=== PATIENT | male | born 1995 | race African-American/Black ===

== ENCOUNTER 2018-01-26 11:09 | Emergency (ER) | payer OTHER ==
[2018-01-26 11:20] VITALS: BP 127/76
[2018-01-26] MEDS ORDERED: cefTRIAXone IV Push 1 GM VIAL. IVP ONE (11:45)
[2018-01-26] MEDS ORDERED: cefTRIAXone IM 1 GM VIAL IM ONE (12:00)
[2018-01-26] MEDS ORDERED: AMOX1TAB61 PO (12:13)
[2018-01-26] MEDS ORDERED: IBUP800T19 PO (12:13)
[2018-01-26] MEDS ORDERED: HYDR115S2 PO (12:13)
--- NOTE | 2018-01-26 12:13 | PHYS DOC ---
Past History Past Medical History: No Pertinent History Past Surgical History: No Surgical History Alcohol Use: None Drug Use: None Adult General Chief Complaint Chief Complaint: SORE THROAT [facility] 22-year-old female patient complaining of sore throat and subjective fever and chills with nasal congestion and hoarseness and myalgia. Patient states he moved from [place] to this area to attend school and plays football daily. Review of Systems Review of Systems Constitutional: Reports subjective fever Eyes: Denies change in visual acuity, redness, or eye pain [] HENT: Reports nasal congestion or sore throat Respiratory: Reports nonproductive cough without shortness of breath [] Cardiovascular: No additional information not addressed in HPI [] GI: Denies abdominal pain, nausea, vomiting, bloody stools or diarrhea [] : Denies dysuria or hematuria [] Musculoskeletal: Denies back pain or joint pain [] Integument: Denies rash or skin lesions [] Neurologic: Denies headache, focal weakness or sensory changes [] Endocrine: Denies polyuria or polydipsia [] All other systems were reviewed and found to be within normal limits, except as documented in this note. Allergies Allergies Allergies Coded Allergies Type Severity Reaction Last Updated Verified No Known Drug Allergies 01/26/18 No Physical Exam Physical Exam Constitutional: Well developed, well nourished, mild distress, non-toxic appearance, hoarseness. [] HENT: Normocephalic, atraumatic, bilateral external ears normal, oropharynx moist, right tonsillar edema and erythema without sign of abscess with exudates , nose normal. [] Eyes: PERRLA, EOMI, conjunctiva normal, no discharge. [] Neck: Normal range of motion, no tenderness, supple, no stridor. [] Cardiovascular:Heart rate regular rhythm, no murmur [] Lungs & Thorax: Bilateral breath sounds clear to auscultation [] Abdomen: Bowel sounds normal, soft, no tenderness, no masses, no pulsatile masses. [] Skin: Warm, dry, no erythema, no rash. [] Back: No tenderness, no CVA tenderness. [] Extremities: No tenderness, no cyanosis, no clubbing, ROM intact, no edema. [] Neurologic: Alert and oriented X 3, normal motor function, normal sensory function, no focal deficits noted. [] Psychologic: Affect normal, judgement normal, mood normal. [] Current Patient Data Vital Signs Vital Signs Date Time Temp Pulse Resp B/P (MAP) Pulse Ox O2 Delivery O2 Flow Rate FiO2 01/26/18 11:20 Room Air 01/26/18 11:20 98.8 81 20 96 EKG EKG [] Radiology/Procedures Radiology/Procedures [] Course & Med Decision Making Course & Med Decision Making Pertinent Labs reviewed. (See chart for details) Evaluation of patient in ER showed 22-year-old male patient with complaining of sore throat and nasal congestion and epistaxis symptom for the last 3 days. Patient had enlarged right tonsil with exudate with negative strep test. Patient treated with Rocephin and ibuprofen in ER and prescription for Augmentin and Tussionex was given. [] Dragon Disclaimer Dragon Disclaimer This electronic medical record was generated, in whole or in part, using a voice recognition dictation system. Departure Departure: Impression: Primary Impression: Acute pharyngitis Disposition: HOME, SELF-CARE (at 1207) Condition: IMPROVED Referrals: PCP,NO (PCP) Patient Instructions: Viral and Bacterial Pharyngitis Additional Instructions: Drink plenty of liquids Follow-up with your primary care physician in 3-5 days Return to ER if not getting better Scripts Ibuprofen (IBUPROFEN) 800 Mg Tablet 1 TAB PO TID, #30 TAB Prov: TANA SCHROEDER MD 01/26/18 Hydrocodone/Chlorphen P-Stirex (Tussionex Pennkinetic Susp) 115 Ml Destiney.er.12h 5 ML PO BID, #60 MISC Prov: TANA SCHROEDER MD 01/26/18 Amoxicillin/Potassium Clav (AUGMENTIN 875-125 TABLET) 1 Each Tablet 1 TAB PO BID, #14 TAB Prov: TANA SCHROEDER MD 01/26/18 TANA SCHROEDER MD Jan 26, 2018 12:13
[2018-01-26] MEDS ORDERED: IBUPROFEN 400 MG TABLET. PO ONE (12:15)
[2018-01-26] MEDS ORDERED: IBUPROFEN 800 MG TABLET. PO ONE (12:15)
== END 2018-01-26 12:18 | disposition home or self-care (01) ==
LOC: ER 11:09
DX: J02.9 Acute pharyngitis, unspecified (principal); J35.1 Hypertrophy of tonsils
CPT/HCPCS: 87070; 87880; 96372; 99283; J0696

== ENCOUNTER 2018-08-04 12:21 | Emergency (ER) | payer OTHER ==
[~2018-08-04] VITALS: Ht 188 cm; Wt 115.7 kg
[~2018-08-04 12:21] MED LIST: AMOX1TAB61 PO; HYDR115S2 PO; IBUP800T19 PO
[2018-08-04] MEDS ORDERED: IV NORMAL SALINE 1,000ML 1,000 ML IV ONE (12:45)
[2018-08-04] MEDS ORDERED: ONDANSETRON PF 4 MG/2 ML VIAL. IV ONE (13:00)
--- NOTE | 2018-08-04 13:02 | RAD ---
Chest, 2 views, 08/04/2018: HISTORY: Shortness of breath The heart size and pulmonary vascularity are normal. No pulmonary infiltrate is seen. There is no evidence of pleural fluid. IMPRESSION: No significant cardiopulmonary abnormality is detected. Electronically signed by: Loki Wade MD (08/04/2018 12:58 PM) [facility]
[2018-08-04 13:06] LABS: BASO % 0 % (0-3); EOS % 0 % (0-3); HEMATOCRIT 49.4 % (39.0-53.0); HEMOGLOBIN 16.4 g/dL (13.0-17.5); LYMPH # 1.5 x10^3/uL (1.0-4.8); LYMPH % 11 % (24-48); MEAN CORPUSCULAR HEMOGLOBIN 27 pg (25-35); MEAN CORPUSCULAR HGB CONC 33 g/dL (31-37); MEAN CORPUSCULAR VOLUME 82 fL (79-100); MONO % 7 % (0-9); NEUT # 11.7 x10^3uL (1.8-7.7); NEUT % 82 % (31-73); PLATELET COUNT 197 x10^3/uL (140-400); WHITE BLOOD COUNT 14.2 x10^3/uL (4.0-11.0)
--- NOTE | 2018-08-04 13:06 | PHYS DOC ---
Past History Past Medical History: No Pertinent History Past Surgical History: No Surgical History Alcohol Use: None Drug Use: None Adult General Chief Complaint Chief Complaint: DIZZY/LIGHT HEADED HPI HPI 22-year-old male presents with congestion, sore throat, dizziness, vomiting. The patient woke up this morning was feeling nauseated and slightly dizzy which she describes as a lightheaded feeling. He then really again feel he continued to vomit. He had one episode of emesis that was blood-tinged. He also noticed that he was having a sore throat prior to vomiting. Patient is unsure if he has had a fever at home. He was feeling well yesterday. He is not eating any unusual or different foods in the last 24 hours. Review of Systems Review of Systems Constitutional: Denies fever or chills [] Eyes: Denies change in visual acuity, redness, or eye pain [] HENT: nasal congestion and sore throat [] Respiratory: Cough without shortness of breath [] Cardiovascular: No additional information not addressed in HPI [] GI: Nausea with blood-tinged emesis[] : Denies dysuria or hematuria [] Musculoskeletal: Denies back pain or joint pain [] Integument: Denies rash or skin lesions [] Neurologic: Denies headache, focal weakness or sensory changes [] Endocrine: Denies polyuria or polydipsia [] All other systems were reviewed and found to be within normal limits, except as documented in this note. Current Medications Current Medications Current Medications Medications (Trade) Dose Ordered Sig/[facility] Start Time Stop Time Status Last Admin Dose Admin Ondansetron HCl (Zofran) 4 mg 1X ONCE 08/04/18 13:00 08/04/18 13:01 DC 08/04/18 12:58 4 MG Sodium Chloride 1,000 ml @ 1,000 mls/hr 1X ONCE 08/04/18 12:45 08/04/18 13:44 08/04/18 12:58 1,000 MLS/HR Allergies Allergies Allergies Coded Allergies Type Severity Reaction Last Updated Verified No Known Drug Allergies 01/26/18 No Physical Exam Physical Exam Constitutional: Well developed, well nourished, no acute distress, non-toxic appearance. [] HENT: Normocephalic, atraumatic, bilateral external ears normal, oropharynx moist, no oral exudates, nose normal. [] Eyes: PERRLA, EOMI, conjunctiva normal, no discharge. [] Neck: Normal range of motion, no tenderness, supple, no stridor. [] Cardiovascular:Heart rate regular rhythm, no murmur [] Lungs & Thorax: Bilateral breath sounds clear to auscultation [] Abdomen: Bowel sounds normal, soft, no tenderness, no masses, no pulsatile masses. [] Skin: Warm, dry, no erythema, no rash. [] Back: No tenderness, no CVA tenderness. [] Extremities: No tenderness, no cyanosis, no clubbing, ROM intact, no edema. [] Neurologic: Alert and oriented X 3, normal motor function, normal sensory function, no focal deficits noted. [] Psychologic: Affect normal, judgement normal, mood normal. [] Current Patient Data Vital Signs Vital Signs Date Time Temp Pulse Resp B/P (MAP) Pulse Ox O2 Delivery O2 Flow Rate FiO2 08/04/18 12:25 100.5 95 20 96 Room Air EKG EKG [] Radiology/Procedures Radiology/Procedures [] Impressions: Chest, 2 views, 08/04/2018: HISTORY: Shortness of breath The heart size and pulmonary vascularity are normal. No pulmonary infiltrate is seen. There is no evidence of pleural fluid. IMPRESSION: No significant cardiopulmonary abnormality is detected. Electronically signed by: Loki Wade MD (08/04/2018 12:58 PM) [facility] DICTATED AND SIGNED BY: LOKI WADE MD DATE: 08/04/18 1257 CC: MAX KEY DO; NON,STAFF Course & Med Decision Making Course & Med Decision Making Pertinent Labs and Imaging studies reviewed. (See chart for details) Patient's rapid strep is positive. I will treat him with Bicillin in the ED. The patient's chest x-ray is unremarkable. I have given him 4 mg Zofran IV and 1 L normal saline. His labs are remarkable for an elevated white count. His urine is negative for infection. He has positive for marijuana. The patient had no further vomiting in the ED. He is stable for discharge at this time. [] Dragon Disclaimer Dragon Disclaimer This electronic medical record was generated, in whole or in part, using a voice recognition dictation system. Departure Departure: Impression: Primary Impression: Strep pharyngitis Additional Impression: Vomiting Disposition: 01 HOME, SELF-CARE Condition: STABLE Referrals: NON,STAFF (PCP) Patient Instructions: Strep Throat Tests-Brief Scripts Ondansetron (ONDANSETRON ODT) 4 Mg Tab.rapdis 1 TAB PO PRN Q6-8HRS PRN for VOMITING, #16 TAB Prov: MAX KEY DO 08/04/18 Problem Qualifiers Additional Impression: Vomiting Vomiting type: unspecified Vomiting Intractability: non-intractable Nausea presence: with nausea Qualified Codes: R11.2 - Nausea with vomiting, unspecified MAX KEY DO Aug 04, 2018 13:06
[2018-08-04 13:09] LABS: BARBITURATES NEG (NEG); BENZODIAZEPINES NEG (NEG); CANNABINOIDS POS (NEG); COCAINE NEG (NEG); METHADONE NEG (NEG); OPIATES NEG (NEG); PHENCYCLIDINE NEG (NEG)
[2018-08-04 13:10] LABS: AMPHETAMINE/METHAMPHETAMINE NEG (NEG)
[2018-08-04 13:13] LABS: BACTERIA,URINE 0 /HPF (0-FEW); BILIRUBIN,URINE NEG (NEG); CLARITY,URINE CLEAR; COLOR,URINE AMBER; GLUCOSE,URINE NEG (NEG); NITRITE,URINE NEG (NEG); RBC,URINE 0 /HPF (0-2); SQUAMOUS EPITHELIAL CELL,UR OCC /LPF; UROBILINOGEN,URINE 0.2 mg/dL (0.2 mg/dL); WBC,URINE 0 /HPF (0-4)
[2018-08-04] MEDS ORDERED: PENICILLIN G BENZATHINE LA 1,200,000 UNIT/2 ML DISP.SYRIN. IM ONE (13:15)
[2018-08-04 13:18] LABS: INFLUENZA A PATIENT NEGATIVE (NEGATIVE); INFLUENZA B PATIENT NEGATIVE (NEGATIVE)
[2018-08-04 13:20] LABS: ALBUMIN 4.2 g/dL (3.4-5.0); CALCIUM 9.4 mg/dL (8.5-10.1); GFR 115.3; POTASSIUM 4.3 mmol/L (3.5-5.1); TOTAL PROTEIN 8.6 g/dL (6.4-8.2)
[2018-08-04] MEDS ORDERED: ONDA4TAB12 PO (13:26)
[2018-08-04 13:29] VITALS: BP 115/62
== END 2018-08-04 14:26 | disposition home or self-care (01) ==
LOC: ER 12:21
DX: J02.0 Streptococcal pharyngitis (principal); R11.2 Nausea with vomiting, unspecified; B95.5 Unspecified streptococcus as the cause of diseases classified elsewhere
CPT/HCPCS: 36415; 71046; 80053; 80307; 81001; 85025; 87804; 87880; 96372; 96374; 99284; J0561; J2405; 96361; J7030